=== PATIENT | female | born 1940 | race Caucasian/White ===

== ENCOUNTER 2019-08-12 17:46 | Inpatient (IN) ==
[2019-08-12] MEDS ORDERED: DUONEB (A & A) INH ONE ×2 (18:43→19:56)
[2019-08-12 19:15] LABS: BASO# 0.04 X1000 (0.0-0.2); BASO% 0.6 % (0.0-0.8); HEMATOCRIT 39.5 % (37.0-47.0); IMM GRAN# 0.02 X1000 (0.0-0.04); IMM GRAN% 0.3 % (0.0-0.5); LYMPH# 0.33 X1000 (1.2-3.4); LYMPH% 4.6 % (20.5-51.1); MCH 30.2 PG (27-31); MCHC 30.4 g/dL (33-37); MCV 99.2 FL (81-99); MONO# 0.59 X1000 (0.11-0.59); MONO% 8.1 % (1.7-9.3); MPV 9.6 FL (7.4-10.4); NEUT# 6.26 X1000 (1.4-6.5); NEUT% 86.4 % (42.2-75.2); PLT 278 X1000 (130-400); RBC 3.98 XMIL (4.2-5.4); RDW 15.2 % (11.5-14.5); WBC 7.24 X1000 (4.8-10.8)
--- NOTE | 2019-08-12 19:22 | Diag Imaging Result Doc PS360 ---
EXAM: CHEST-2 VIEWS INDICATION: COUGH SOB TECHNIQUE: 2 views COMPARISON: 05/28/2019 FINDINGS: The lungs are grossly clear. There is no discrete pleural fluid collection or pneumothorax. There is stable cardiomegaly and a stable left-sided pacemaker. Central vasculature is unremarkable. IMPRESSION: Cardiomegaly but no definite acute pathology by plain radiograph. Electronically signed by Kel Valdes 08/12/2019 7:20 PM
[2019-08-12 19:24] LABS: CALCIUM 9.7 mg/dL (8.8-10.2); CREATININE 0.9 mg/dL (0.5-0.9); POTASSIUM 3.8 mmol/L (3.5-5.1)
[2019-08-12] MEDS ORDERED: LASIX IV ONE (19:56)
[2019-08-12] MEDS ORDERED: TESSALON PO ONE (19:57)
[2019-08-12] MEDS ORDERED: SOLU-MEDROL IV ONE (19:57)
[2019-08-12] MEDS ORDERED: MUCINEX PO ONE (19:57)
--- NOTE | 2019-08-12 22:30 | PROVIDER DOCUMENTATION ---
This chart was entered by Joy Ayala Scribe, acting as scribe for Sunny Rendon MD. HPI-Respiratory General - General Chief Complaint: Shortness of Breath Stated Complaint: SOB COUGH WEAK Time Seen by Provider: 08/12/19 18:12 Source: patient, family () Allergies/Adverse Reactions: Patient Allergies Allergy/AdvReac Type Severity Reaction Status Date / Time acetaminophen [From Tylenol] Allergy Severe Unknown Verified 05/28/19 16:05 codeine Allergy Intermediate NAUSEA Verified 05/28/19 16:05 Home Medications: Home Medication List Medication Instructions Recorded Confirmed Last Taken Type Aspirin 81 mg PO BID 06/20/14 08/12/19 05/28/19 History Dabigatran Etexilate Mesylate 150 mg PO BID 06/20/14 08/12/19 05/28/19 History [Pradaxa] Famotidine [Pepcid] 40 mg PO BID 06/20/14 08/12/19 05/28/19 History Metformin [Glucophage] 500 mg PO BID AC 06/20/14 08/12/19 05/28/19 History Colesevelam HCl [Welchol] 1,875 mg PO BID 12/18/17 08/12/19 05/28/19 History Exemestane 25 mg PO QAM 12/18/17 08/12/19 05/28/19 History Irbesartan/Hydrochlorothiazide 1 each PO BID 04/09/18 08/12/19 05/28/19 History [Irbesartan-Hctz 150-12.5 mg Tb] Clonazepam 0.5 mg PO BID 05/11/18 08/12/19 05/28/19 History Ascorbic Acid [Vitamin C] 500 mg PO BID 05/17/18 08/12/19 05/28/19 History Lysine HCl [l-Lysine] 500 mg PO BID 05/17/18 08/12/19 05/28/19 History Meclizine HCl [Antivert] 25 mg PO PRN PRN 05/17/18 08/12/19 Unknown History Melatonin/Pyridoxine [Melatonin 5 2 each PO HS 05/17/18 08/12/19 05/27/19 History mg Tablet] Tramadol [Ultram] 50 mg PO BID PRN 05/17/18 08/12/19 1 Week Ago History ~05/21/19 Vilazodone HCl [Viibryd] 20 mg PO DAILY 05/17/18 08/12/19 05/28/19 History Amlodipine Besylate [Norvasc] 5 mg PO HS #0 05/19/18 08/12/19 05/27/19 Rx Torsemide [Demadex] 1 tab PO QAM 05/28/19 08/12/19 05/28/19 History Azithromycin 250 mg PO DAILY 5 Days #5 tablet 08/12/19 Unknown Rx Benzonatate [Tessalon] 100 mg PO TID 5 Days #15 capsule 08/12/19 Unknown Rx Prednisone 40 mg PO DAILY 5 Days #5 tablet 08/12/19 Unknown Rx - History of Present Illness-Resp Nature of Presenting Problem: 79yof presents to ED cc SOB increased with walking, productive cough, tenderness in abdomen and chest with increased coughing for last 2 weeks. Pt at bedside and reports pt has nebulizer with Albuterol at home and uses it regularly. Pt reports she does have home o2 but only uses it when 'they make her.' Pt has hx of COPD, CHF, AFIB, HTN, SD, chronic pain that leads to limited mobility. Pt is nontoxic upon exam. Quality of Pain: reports: tightness Severity in ED: reports: moderate Onset/Duration: reports: last week Timing: reports: still present, getting worse Cough Quality/Degree: reports: productive cough Current Respiratory Medication Therapy: Initiated see nurses note Modifying Factors: worse with: exertion, coughing Associated Symptoms: reports: chest pain/soreness, cough, fever/chills, sh ortness of breath, short of breath, wheezing. denies: headache, muscle/bodyaches Similar Symptoms Previously?: Yes Recently seen or treated by another doctor?: Yes (seen in ED 05/28/19) Review of Systems - Adult - REVIEW OF SYSTEMS - ADULT Constitutional: reports: see HPI, chills, fever, fatique Eyes: reports: no symptoms reported Ears, Nose, Mouth & Throat: reports: no symptoms reported Cardiovascular: reports: see HPI, chest pain (from coughing). denies: palpitations Respiratory: reports: see HPI, cough, dyspnea on exertion, shortness of breath, wheezing Gastrointestinal: reports: see HPI, abdominal pain (from coughing) Genitourinary: reports: no symptoms reported Musculoskeletal: reports: no symptoms reported Integumentary: reports: no symptoms reported Neurological: reports: see HPI. denies: headache/migraines, syncope Psychiatric: reports: no symptoms reported Endocrine: reports: no symptoms reported Hematologic/Lymphatic: reports: no symptoms reported Allergic/Immunologic: reports: no symptoms reported All Other Systems: Reviewed and Negative Past History - Adult - PAST MEDICAL HISTORY-ADULT Review of Records: reports: Old Records Reviewed, Nursing Assessment Review, Medications Reviewed, Social history reviewed & non-contributory. Major Childhood Illnesses: reports: denies history Cardiovascular: reports: CHF, HTN Respiratory: reports: denies history Gastrointestinal: reports: denies history Obstetrical/Gynecological: reports: denies history Genitourinary: reports: denies history Musculoskeletal: reports: arthritis Neurological: reports: denies history Endocrine/Immune: reports: denies history Other Conditions: reports: denies history - PRIOR SURGERIES/PROCEDURES Surgical/Procedure History: reports: pacemaker, other (bilateral mastectomy) - IMMUNIZATION STATUS Childhood Immunizations: See Nurse Assessment Flu Vaccine: See Nurse Assessment - FAMILY HISTORY Family History: reviewed, not pertinent - SOCIAL HISTORY Smoking: denies Physical Exam-General - PHYSICAL EXAM-ADULT Initial Vital Signs Reviewed: Yes - CONSTITUTIONAL General Appearance: appears well, alert, no apparent distress. negative: anxious, combative - EYES Eyes: PERRL/EOMI, pink conjunctivae. negative: photophobia - HEAD, EARS, NOSE, MOUTH & THROAT HENMT: normocephalic/atraumatic, moist mucous membranes. negative: angioedema - NECK Neck: full range of motion, normal inspection - RESPIRATORY Respiratory: chest non-tender, normal breath sounds, no respiratory distress, no accessory muscle use, rhonchi (diffuse throughout), wheezing (bilateral). n egative: crackles, rales - CARDIOVASCULAR Cardiovascular: normal peripheral pulses, regular rate, rhythm. negative: bradycardia, tachycardia - GASTROINTESTINAL (ABDOMEN) Abdominal Exam: normal bowel sounds, non tender, soft. negative: rigid, rebound - MUSCULOSKELETAL Extremity: swelling (+1 bilaterally legs). negative: deformity - SKIN Integumentary: normal color. negative: diaphoresis, jaundice - PSYCHIATRIC Psych/Mental Status: normal mood/affect, oriented x 3. negative: anxious, disheveled Progress - PLAN OF CARE/RESULTS Progress/Plan/Lab Results: Vital Signs - 8 hr 08/12/19 17:51 01/02/20 18:40 08/12/19 18:45 Temperature 100.4 F H Pulse Rate 80 Respiratory Rate 24 Blood Pressure 178/71 183/97 O2 Sat by Pulse Oximetry 93 L 95 95 08/12/19 19:00 08/12/19 19:15 08/12/19 19:30 Temperature Pulse Rate 80 Respiratory Rate 17 Blood Pressure O2 Sat by Pulse Oximetry 93 L 94 L 96 08/12/19 19:31 08/12/19 19:45 08/12/19 20:00 Temperature Pulse Rate Respiratory Rate Blood Pressure 175/72 O2 Sat by Pulse Oximetry 98 93 L 93 L 08/12/19 20:01 08/12/19 20:15 08/12/19 20:30 Temperature Pulse Rate Respiratory Rate Blood Pressure 179/65 O2 Sat by Pulse Oximetry 93 L 95 95 08/12/19 20:31 Temperature 98.6 F Pulse Rate 81 Respiratory Rate Blood Pressure 162/88 O2 Sat by Pulse Oximetry 95 08/12/19 20:30 Influenza Screen - Final Nasopharyngeal Laboratory Results - last 24 hr 08/12/19 08/12/19 08/12/19 18:19 18:19 18:19 WBC 7.24 RBC 3.98 L Hgb 12.0 Hct 39.5 MCV 99.2 H MCH 30.2 MCHC 30.4 L RDW Std Deviation 15.2 H Plt Count 278 MPV 9.6 Immature Gran % (Auto) 0.3 Neut % (Auto) 86.4 H Lymph % (Auto) 4.6 L Edwards % (Auto) 8.1 Eos % (Auto) 0.0 Baso % (Auto) 0.6 Immature Gran # (Auto) 0.02 Neut # (Auto) 6.26 Lymph # (Auto) 0.33 L Edwards # (Auto) 0.59 Eos # (Auto) 0.00 Baso # (Auto) 0.04 Sodium 136 Potassium 3.8 Chloride 92 L Carbon Dioxide 26 Anion Gap 18 BUN 17 Creatinine 0.9 Estimated GFR/1.73 m2 60 BUN/Creatinine Ratio 19 Glucose 206 H Calculated Osmolality 279 Calcium 9.7 [id number] Pept 1493 H Orders Category Date Time Status Repeat Vital Signs .Temp Care 08/12/19 20:04 Active cxr [CHEST-2 VIEWS] [RAD] Stat Exams 08/12/19 18:15 Completed BASIC METABOLIC PANEL [CHEM] Stat Lab 08/12/19 18:19 Completed BNP [PRO B-NATRIURETIC PEPTIDE] Stat Lab 08/12/19 18:19 Completed CBC WITH ELECTRONIC DIFF [HEME] Stat Lab 08/12/19 18:19 Completed INFLUENZA SCREEN A/B Stat Lab 08/12/19 20:30 Completed Albuterol 2.5MG/Ipratrop 0.5MG [Duoneb (A & A)] Med 08/12/19 18:43 Discontinued 3 ml INH NOW ONE Albuterol 2.5MG/Ipratrop 0.5MG [Duoneb (A & A)] Med 08/12/19 19:56 Discontinued 3 ml INH NOW ONE Benzonatate [Tessalon] Med 08/12/19 19:57 Discontinued 200 mg PO NOW ONE Furosemide [Lasix] Med 08/12/19 19:56 Discontinued 60 mg IV NOW ONE Guaifenesin E.r. [Mucinex] Med 08/12/19 19:57 Discontinued 600 mg PO NOW ONE Methylprednisolone Sod Succ [Solu-Medrol] Med 08/12/19 19:57 Discontinued 60 mg IV NOW ONE Aerosol Treatments Routine Oth 08/12/19 18:43 Completed Aerosol Treatments Routine Oth 08/12/19 19:57 Completed Aerosol Treatments Stat Oth 08/12/19 18:43 Completed Aerosol Treatments Stat Oth 08/12/19 19:57 Completed Result Diagrams: 08/12/19 18:19 08/12/19 18:19 - REASSESSMENT Reassessment #1 Time Reassessed: 20:02 Status: other ( IS INSIST THAT PATIENT BE ADMITTED TO THE HOSPITAL BECUASE THE PATIENT HAS BEEN COUGHING FOR MORE THAN 2 WEEKS AND SHORTNESS OF BREATH AND IS NOT GETTING BETTER. I HAVE INFORMED HIM AND THE PATIENT THAT I WI LL GO AHEAD AND GIVE TREATMENT FIRST AND REEVALUATE BEFORE MAKING FURTHER DECISION.) Reassessment #2 Time Reassessed: 22:14 Status: other - XRAY 1 XRAY: Bilateral XRAY Study: Chest Impression: See EMR Report (IMPRESSION: Cardiomegaly but no definite acute pathology by plain radiograph. Electronically signed by Kel Valdes 08/12/2019 7:20 PM) Departure - Departure Date of Disposition Decision: 08/12/19 Time of Disposition Decision: 22:22 DIAGNOSIS: Bronchitis, COPD exacerbation Disposition: HOME 01 Certified Medical Emergency: Emergent Condition: Stable Additional Instructions: ED Follow Up Instructions: You have been treated by a care provider in the Emergency Department. These instructions are being provided to you so you can have an understanding of how to care for yourself upon discharge. Upon discharge from the Emergency Department, you are responsible for making arrangements for follow-up care by a physician of your choice. Take all prescribed medications as directed. Return to the Emergency Department immediately for any new or worsening symptoms. You may call the Physician Referral phone number at [phone] to obtain a list of Physicians who are taking new patients. Prescriptions: Azithromycin 250 mg PO DAILY 5 Days #5 tablet Prednisone 40 mg PO DAILY 5 Days #5 tablet Benzonatate [Tessalon] 100 mg PO TID 5 Days #15 capsule Referrals and Follow-Ups: Usman Kerr MD [Primary Care Provider] - - Critical Care Note This patient required my direct & personal management of CC.: No Attestation - Physician/ TRELL Attestation Patient care was provided by Advanced Practice Provider:: No The physician spent face to face time with patient:: Yes Advanced Practice Provider documentation review:: Supervising physician onsite and consulted in the evaluation and care of this patient. The physician did have a face to face encounter with the patient. This chart was documented by the indicated scribe, (Joy Ayala Scribe) and accurately reflects the services I performed and decisions made by me, Sunny Rendon MD, as attested by the provider's signature.
--- NOTE | 2019-08-13 03:18 | HISTORY AND PHYSICAL ---
PRIMARY CARE PHYSICIAN: Dr. Usman Kerr. CHIEF COMPLAINT: Shortness of breath and cough x2 weeks. HISTORY OF PRESENTING ILLNESS: An 79-year-old elderly female with a history of chronic respiratory failure on home oxygen, CHF, diabetes mellitus type 2, chronic atrial fibrillation, who had presented to emergency department with 2 weeks history of having persistent shortness of breath and cough. The patient states that despite her being on oxygen she was still having shortness of breath and subsequently had come to the emergency department. In the ED, she was evaluated and due to her presenting symptoms it was thought that we will place her for observation for further evaluation and management. At the time of my examination, patient denied any headache, fever, chills, chest pain, hemoptysis, melena or any weight changes, but complained of shortness of breath and cough. PAST MEDICAL HISTORY: Includes chronic respiratory failure on home oxygen, CHF, diabetes mellitus type 2, chronic atrial fibrillation, breast cancer. PAST SURGICAL HISTORY: Pacemaker and bilateral mastectomy. ALLERGIES: Acetaminophen and codeine. CURRENT MEDICATIONS: Include Norvasc 5 mg p.o. at bedtime, aspirin 81 mg p.o. daily, Klonopin 0.5 mg p.o. b.i.d., Welchol 1875 mg p.o. b.i.d., Pradaxa 150 mg p.o. b.i.d., famotidine 40 mg p.o. b.i.d., irbesartan/hydrochlorothiazide 150 mg/12.5 one p.o. daily, metformin 500 mg p.o. b.i.d., torsemide 20 mg p.o. daily, Ultram 50 mg p.o. b.i.d., Viibryd 20 mg p.o. daily. SOCIAL HISTORY: No history of smoking, alcohol or illicit drug use. FAMILY HISTORY: No history of coronary artery disease. REVIEW OF SYSTEMS: Fourteen point review of system as listed in HPI. Other systems negative. PHYSICAL EXAMINATION: GENERAL: Cooperative, friendly elderly female. She is resting more comfortably now. VITAL SIGNS: Temperature 98.9 degrees, pulse 78, respiration 19, blood pressure 181/86. HEENT: Atraumatic, normocephalic. Extraocular movements intact. PERRLA. NECK: No masses. CHEST: Scattered wheezes. CARDIOVASCULAR: Regular rate and rhythm. ABDOMEN: Soft, positive bowel sounds. EXTREMITIES: Trace edema. NEUROLOGIC: She is awake, alert, oriented x3. GENITOURINARY: No bladder distention. SKIN: Warm. LABORATORIES AND STUDIES: WBC 7.24, hemoglobin 12.0, hematocrit 39.5, platelets 278,000. Sodium 136, potassium 3.8, chloride 92, CO2 is 26, BUN is 17, creatinine 0.9, glucose 206. ProBNP is 1496. Chest x-ray shows cardiomegaly. ASSESSMENT: An 79-year-old elderly female with a history of chronic respiratory failure on home oxygen, congestive heart failure, diabetes mellitus type 2 and chronic atrial fibrillation, who had presented to emergency department with 2 weeks history of having persistent shortness of breath and cough. She was evaluated in the emergency department. Due to her presenting symptoms, it was thought that we will place her for observation for further evaluation and management. 1. Acute on chronic respiratory failure. 2. Mild congestive heart failure exacerbation. 3. Diabetes mellitus type 2. 4. Chronic atrial fibrillation. PLAN: 1. We will admit patient to medical floor with telemetry. 2. Continue patient on supplemental oxygen. 3. We will continue with DuoNebs p.r.n. 4. Continue with gentle diuresis. 5. Monitor blood glucose and put patient on sliding scale insulin regimen. 6. Continue to monitor patient on telemetry. 7. Put patient on DVT prophylaxis with SCDs. 8. We will continue to follow, reassess and make further recommendation based on patient's clinical course. cc: Cipriano Kerr MD
[2019-08-13] MEDS ORDERED: DUONEB (A & A) INH PRN (04:45)
[2019-08-13] MEDS ORDERED: ANTIVERT PO PRN (04:45)
[2019-08-13] MEDS ORDERED: ULTRAM PO PRN (04:45)
[2019-08-13] MEDS ORDERED: ZOFRAN IV PRN (04:45)
[2019-08-13] MEDS: LASIX IV SCH ×2 (05:41→16:38)
[2019-08-13] MEDS: TESSALON PO PRN ×2 (05:41→12:50)
[2019-08-13] MEDS: HUMULIN R SUBQ SCH ×4 (06:34→21:45)
[2019-08-13] MEDS: PRADAXA PO SCH ×2 (09:20→21:43)
[2019-08-13] MEDS: VITAMIN C PO SCH ×2 (09:20→21:44)
[2019-08-13] MEDS: KLONOPIN PO SCH ×2 (09:20→21:45)
[2019-08-13] MEDS: ASPIRIN PO SCH ×2 (09:20→21:42)
[2019-08-13] MEDS: AVAPRO PO SCH ×2 (09:21→21:41)
[2019-08-13] MEDS: HYDROCHLOROTHIAZIDE PO SCH ×2 (09:21→21:44)
[2019-08-13] MEDS: PEPCID PO SCH ×2 (09:21→21:43)
[2019-08-13] MEDS: WELCHOL PO SCH ×2 (09:22→21:56)
[2019-08-13] MEDS: VIIBRYD PO SCH (12:46)
[2019-08-13 13:13] LABS: URINE SOURCE CLEAN CATCH
[2019-08-13 13:24] LABS: BILIRUBIN URINE NEGATIVE (NEGATIVE); BLOOD URINE NEGATIVE (NEGATIVE); COLOR YELLOW; GLUCOSE URINE TRACE mg/dL (NEGATIVE); KETONE URINE NEGATIVE (NEGATIVE); LEUKOCYTES URINE NEGATIVE (NEGATIVE); NITRITE URINE NEGATIVE (NEGATIVE); PROTEIN URINE 30 mg/dL (NEGATIVE); SP GRAVITY URINE 1.012; TURBIDITY URINE CLEAR (CLEAR); UROBILINOGEN URINE NORMAL (NORMAL)
[2019-08-13 13:44] LABS: UR EPITHELIAL CELLS <10 /HPF (<10); URINE BACTERIA NEGATIVE /HPF; URINE RBC <10 /HPF (<10); URINE WBC <10 /HPF (<10)
[2019-08-13 13:45] LABS: URINE CRYSTALS NONE SEEN
[2019-08-13] MEDS ORDERED: DUONEB (A & A) INH SCH (16:00)
[2019-08-13] MEDS: SOLU-MEDROL IV SCH (16:43)
--- NOTE | 2019-08-13 17:50 | PROGRESS NOTE ---
DATE: 08/13/2018 INTERVAL HISTORY: Ms. Gipson was admitted for shortness of breath. No acute events overnight. SUBJECTIVE: Ms. Gipson is feeling better. Her is at bedside. She, however, still feels short of breath and is complaining of a cough. She denies any fever. She states she is able to make sputum frequently which looks yellow to brownish. She states she has been taking diuretics at home. She states she has a known history of COPD and is supposed to be using oxygen. VITAL SIGNS: Currently, temperature of 98.8 degrees, pulse 80, respiratory rate 20, blood pressure 160/50, saturating 100% on 2 L nasal cannula. PHYSICAL EXAMINATION: General: She is not in acute distress. HEENT: Oral cavity is moist. No congestion in the posterior pharyngeal wall. Lungs: Air entry decreased bilaterally with inspiratory crackles and end-expiratory wheezes audible, most prominent in infrascapular region. Cardiovascular: S1, S2 normal. Regular. No murmur or gallop. Abdomen: Soft, nontender. No jugular venous distention on palpation of right upper quadrant. Extremities: She has mild bilateral lower extremity edema. Neurologic: She is alert. She is answering most questions appropriately. She does have some memory impairment though, as she stated that she had seen me about 6 years ago. LABS: Initial labs did not have any leukocytosis. She has hyperglycemia. MICROBIOLOGY: Influenza screen was negative. IMAGING: Chest x-ray has pulmonary vascular congestion and interstitial pulmonary edema. ASSESSMENT AND PLAN: 1. Acute on chronic hypoxic respiratory failure due to acute on chronic cor pulmonale and acute chronic obstructive pulmonary disease exacerbation. Continue intravenous Lasix. Start patient on scheduled inhaled bronchodilator, as well as intravenous steroids. I will follow up her respiratory status closely. I will follow up with daily BMP. 2. History of congestive heart failure with preserved ejection fraction exacerbation. She does have significant pulmonary hypertension with pulmonary artery pressure of 65 to 70 mmHg. I will continue her intravenous diuretics, irbesartan. 3. History of chronic atrial fibrillation, status post pacemaker. She is not listed to be taking any rate control medication. She is on dabigatran, which I will continue. 4. History of essential hypertension. Continue home amlodipine, hydrochlorothiazide, irbesartan. 5. She also has a history of transcutaneous aortic valve replacement, chronic obstructive pulmonary disease, type 2 diabetes mellitus for which I will continue her sliding scale insulin and will add a insulin glargine. 6. Disposition. Continue to monitor the patient in the telemetry unit. Plan of care discussed with the patient and her extensively. All of their questions have been satisfactorily answered. cc: Ramon Oconnell MD
[2019-08-13] MEDS: DUONEB (A & A) INH SCH (20:11)
[2019-08-13] MEDS: NORVASC PO SCH (21:41)
[2019-08-13] MEDS: LANTUS INSULIN SUBQ SCH (21:56)
[2019-08-14] MEDS: DUONEB (A & A) INH SCH ×6 (00:12→15:58)
[2019-08-14] MEDS: LASIX IV SCH ×2 (06:29→18:27)
[2019-08-14] MEDS: HUMULIN R SUBQ SCH ×4 (06:35→23:08)
[2019-08-14 07:43] LABS: BASO# 0.01 X1000 (0.0-0.2); BASO% 0.1 % (0.0-0.8); HEMATOCRIT 41.4 % (37.0-47.0); HEMOGLOBIN 12.3 g/dL (12.0-16.0); LYMPH# 0.38 X1000 (1.2-3.4); LYMPH% 3.3 % (20.5-51.1); MCH 29.6 PG (27-31); MCHC 29.7 g/dL (33-37); MCV 99.5 FL (81-99); MONO# 0.53 X1000 (0.11-0.59); MONO% 4.6 % (1.7-9.3); MPV 9.6 FL (7.4-10.4); NEUT# 10.67 X1000 (1.4-6.5); PLT 283 X1000 (130-400); RBC 4.16 XMIL (4.2-5.4); RDW 14.9 % (11.5-14.5); WBC 11.59 X1000 (4.8-10.8)
[2019-08-14] MEDS: PATIENT'S OWN MED PO SCH ×3 (07:45→23:07)
[2019-08-14 08:05] LABS: CALCIUM 9.7 mg/dL (8.8-10.2); CREATININE 1.1 mg/dL (0.5-0.9); POTASSIUM 3.6 mmol/L (3.5-5.1)
[2019-08-14 08:20] LABS: BANDS 2 % (0-1); LYMPHS 10 % (21-51); MONO 6 % (1-9); SEGS 82 % (42-75)
[2019-08-14] MEDS: PEPCID PO SCH ×2 (10:08→23:11)
[2019-08-14] MEDS: WELCHOL PO SCH ×2 (10:08→23:11)
[2019-08-14] MEDS: ASPIRIN PO SCH ×2 (10:09→23:12)
[2019-08-14] MEDS: AVAPRO PO SCH ×2 (10:09→23:11)
[2019-08-14] MEDS: VIIBRYD PO SCH (10:09)
[2019-08-14] MEDS: KLONOPIN PO SCH ×2 (10:10→23:19)
[2019-08-14] MEDS: HYDROCHLOROTHIAZIDE PO SCH ×2 (10:10→23:09)
[2019-08-14] MEDS: VITAMIN C PO SCH ×2 (10:10→23:12)
[2019-08-14] MEDS: PRADAXA PO SCH ×2 (10:10→23:12)
[2019-08-14] MEDS: SOLU-MEDROL IV SCH (18:27)
--- NOTE | 2019-08-14 20:40 | PROGRESS NOTE ---
DATE: 08/14/2019 INTERVAL HISTORY: No acute events were reported to me. I could not find the patient in the room. I will revisit her again. OBJECTIVE: On reviewing the vital signs, I could see her temperature was 98.2 degrees, pulse 81, respiratory rate 20, blood pressure 130/50. She is saturating 100% on 2 L nasal cannula. I have yet to perform physical examination. LABORATORY DATA: Reviewing the labs suggests she does have leukocytosis, normocytic anemia and normal platelet count. This likely because of steroid use. She does have increasing BUN and creatinine. She also has hyperglycemia, likely because of steroid use. Microbiology: Influenza screen on presentation was negative. ASSESSMENT AND PLAN: 1. [id number] hypoxic respiratory failure due to [id number] cor pulmonale and acute chronic obstructive pulmonary disease exacerbation. I am holding intravenous Lasix for now until I reassess her. Continue scheduled bronchodilators and intravenous steroids. She appears to be hemodynamically stable. 2. History of congestive heart failure with preserved ejection fraction exacerbation. Pulmonary hypertension of 65 to 70 mmHg. Continue her home irbesartan. 3. History of chronic atrial fibrillation, status post pacemaker. Continue dabigatran. 4. History of essential hypertension. Continue amlodipine, hydrochlorothiazide and irbesartan. 5. She has a history of transcutaneous aortic valve replacement, chronic obstructive pulmonary disease, type 2 diabetes mellitus, and I am keeping her on insulin glargine and sliding scale insulin. 6. Disposition: Monitor patient inside hospital. cc: Ramno cOonnell MD
[2019-08-14] MEDS: NORVASC PO SCH (23:12)
[2019-08-14] MEDS: LANTUS INSULIN SUBQ SCH (23:17)
[2019-08-15] MEDS: DUONEB (A & A) INH SCH ×8 (00:01→23:25)
[2019-08-15] MEDS: HUMULIN R SUBQ SCH ×4 (06:42→22:24)
[2019-08-15 08:37] LABS: CREATININE 1.1 mg/dL (0.5-0.9); MAGNESIUM 2.1 mg/dL (1.5-2.7); POTASSIUM 4.1 mmol/L (3.5-5.1)
--- NOTE | 2019-08-15 09:32 | PROGRESS NOTE ---
DATE: 08/15/2019 INTERVAL HISTORY: No acute events overnight. SUBJECTIVE: Ms. Gipson is feeling better. She is asleep. She states she is no longer feeling short of breath. VITALS: Currently temperature of 98.2 degrees, pulse 80, respiratory rate 20, blood pressure 150/50, saturating 97% room air. PHYSICAL EXAMINATION: Not in acute distress. Oral cavity is moist. Lungs: Air entry bilaterally equal. No wheeze or rhonchi. Mild crackles in infrascapular region. S1, S2 normal. Regular. No murmur, rub, or gallop. Abdomen: Soft, nontender. She does not have lower extremity edema. She is alert and oriented x3. Her input and output is not charted properly though. LABS: Suggestive of hyponatremia, hypochloremia. Elevated BUN and creatinine. This is likely because of intravenous Lasix which I have stopped. Hyperglycemia because of steroids and I have changed it to oral. Her influenza screen was negative. No new chest x-ray. ASSESSMENT AND PLAN: 1. Acute on chronic hypoxic respiratory failure due to acute on chronic cor pulmonale and acute chronic obstructive pulmonary disease exacerbation, now improved. Stop intravenous Lasix. Continue inhaled bronchodilators and change to oral steroids. 2. Acute kidney injury due to intravenous Lasix use. It should get better. She should have outpatient BMP. 3. History of chronic atrial fibrillation, status post pacemaker. Continue home dabigatran. 4. Others. Continue amlodipine, hydrochlorothiazide, and losartan for essential hypertension; she is status post transcatheter aortic valve replacement; she has history of chronic obstructive pulmonary disease and type 2 diabetes mellitus for which I will continue sliding scale insulin and glargine. 5. Disposition. I am anticipating discharge in the next 24 hours. Plan of care discussed with the patient. Her questions have been answered. cc: Ramon Oconnell MD
[2019-08-15] MEDS: VITAMIN C PO SCH ×2 (09:57→22:26)
[2019-08-15] MEDS: VIIBRYD PO SCH (09:57)
[2019-08-15] MEDS: PREDNISONE PO SCH (09:57)
[2019-08-15] MEDS: WELCHOL PO SCH ×2 (09:57→22:26)
[2019-08-15] MEDS: PEPCID PO SCH ×2 (09:57→22:25)
[2019-08-15] MEDS: KLONOPIN PO SCH ×2 (09:57→22:31)
[2019-08-15] MEDS: AVAPRO PO SCH ×2 (09:58→22:25)
[2019-08-15] MEDS: PRADAXA PO SCH ×2 (09:58→22:26)
[2019-08-15] MEDS: HYDROCHLOROTHIAZIDE PO SCH ×2 (09:58→22:26)
[2019-08-15] MEDS: ASPIRIN PO SCH ×2 (09:58→22:25)
[2019-08-15] MEDS: PATIENT'S OWN MED PO SCH ×2 (09:59→22:31)
[2019-08-15] MEDS: LANTUS INSULIN SUBQ SCH (22:24)
[2019-08-15] MEDS: NORVASC PO SCH (22:26)
[2019-08-16] MEDS: DUONEB (A & A) INH SCH ×6 (03:48→23:35)
[2019-08-16] MEDS: HUMULIN R SUBQ SCH ×4 (06:15→22:34)
[2019-08-16] MEDS ORDERED: FLU VACCINE IM ONE (07:37)
[2019-08-16] MEDS: KLONOPIN PO SCH ×2 (08:07→22:33)
[2019-08-16] MEDS: AVAPRO PO SCH ×2 (08:07→22:32)
[2019-08-16] MEDS: PEPCID PO SCH ×2 (08:07→22:33)
[2019-08-16] MEDS: VITAMIN C PO SCH ×2 (08:07→22:33)
[2019-08-16] MEDS: HYDROCHLOROTHIAZIDE PO SCH ×2 (08:07→22:33)
[2019-08-16] MEDS: PREDNISONE PO SCH (08:07)
[2019-08-16] MEDS: PRADAXA PO SCH ×2 (08:07→22:32)
[2019-08-16] MEDS: ASPIRIN PO SCH ×2 (08:07→22:33)
[2019-08-16] MEDS: WELCHOL PO SCH ×2 (08:07→22:33)
[2019-08-16] MEDS: DEMADEX PO SCH (08:07)
[2019-08-16] MEDS: VIIBRYD PO SCH (08:08)
[2019-08-16] MEDS: PATIENT'S OWN MED PO SCH ×2 (08:19→23:46)
[2019-08-16 08:25] LABS: CALCIUM 9.4 mg/dL (8.8-10.2); CREATININE 1.1 mg/dL (0.5-0.9); POTASSIUM 2.7 mmol/L (3.5-5.1)
[2019-08-16] MEDS ORDERED: KLOR-CON PO ONE ×2 (10:00→14:45)
--- NOTE | 2019-08-16 15:11 | PROGRESS NOTE ---
DATE: 08/16/2019 INTERVAL HISTORY: No acute events overnight. Ms. Gipson is sleepy early in the morning time when I saw her. She denies any chest pain or shortness of breath. She states she is feeling significantly better. She was walking in the hallway. VITALS: Temperature 98.1 degrees, pulse 79, respiratory rate 18, blood pressure 140/50, she is saturating 100% on 2 L nasal cannula. PHYSICAL EXAMINATION: She is not in acute distress. Oral cavity is moist. Air entry bilaterally equal. No wheeze, rhonchi, crackles. Cardiovascular: S1, S2 normal. No murmur, rub, or gallop. Abdomen: Soft, nontender. No lower extremity edema. She was drowsy but arousable. She answers most questions appropriately. LABS: No CBC today. BMP suggestive of hypokalemia which was repleted with potassium and I also ordered another dose of potassium. ASSESSMENT AND PLAN: 1. Acute on chronic hypoxic respiratory failure due to acute on chronic cor pulmonale and mild acute chronic obstructive pulmonary disease exacerbation, now improved. Continue inhaled bronchodilators, oral steroids, and oral Lasix. 2. Acute kidney injury due to intravenous Lasix use, now improved. I will transition her to her home oral diuretic, torsemide. 3. History of chronic atrial fibrillation, status post pacemaker. Continue home dabigatran. Her heart rate is well-controlled. 4. Continue amlodipine, hydrochlorothiazide, losartan for essential hypertension; she is status post transcatheter aortic valve replacement; history of chronic obstructive pulmonary disease and chronic hypoxic respiratory failure, on home oxygen, currently stable. 5. Type 2 diabetes mellitus and steroid-induced hyperglycemia. Continue her current dose of glargine and sliding scale insulin. 6. Disposition. My initial plan was to discharge patient home today and the discharge summary has been dictated. However, the patient's came by and they said that he would not be able to take the patient home and he wanted the patient to go to rehab until an assisted living facility is arranged. Because of his complex social issues, social media job titles have been involved and I canceled the discharge order. cc: Ramon Oconnell MD
[2019-08-16] MEDS: NORVASC PO SCH (22:33)
[2019-08-16] MEDS: LANTUS INSULIN SUBQ SCH (22:34)
[2019-08-17] MEDS: DUONEB (A & A) INH SCH ×6 (03:20→23:58)
[2019-08-17] MEDS: HUMULIN R SUBQ SCH ×4 (06:47→23:53)
[2019-08-17 08:35] LABS: CALCIUM 9.6 mg/dL (8.8-10.2); CREATININE 1.1 mg/dL (0.5-0.9); POTASSIUM 3.7 mmol/L (3.5-5.1)
[2019-08-17 09:12] LABS: MAGNESIUM 2.5 mg/dL (1.5-2.7)
[2019-08-17] MEDS: VIIBRYD PO SCH (09:13)
[2019-08-17] MEDS: PREDNISONE PO SCH (09:14)
[2019-08-17] MEDS: AVAPRO PO SCH ×2 (09:14→21:35)
[2019-08-17] MEDS: VITAMIN C PO SCH ×2 (09:14→21:35)
[2019-08-17] MEDS: PEPCID PO SCH ×2 (09:14→21:33)
[2019-08-17] MEDS: ASPIRIN PO SCH ×2 (09:14→21:38)
[2019-08-17] MEDS: PRADAXA PO SCH ×2 (09:14→21:34)
[2019-08-17] MEDS: WELCHOL PO SCH ×2 (09:15→21:33)
[2019-08-17] MEDS: HYDROCHLOROTHIAZIDE PO SCH ×2 (09:15→21:35)
[2019-08-17] MEDS: DEMADEX PO SCH (09:15)
[2019-08-17] MEDS: PATIENT'S OWN MED PO SCH ×2 (09:30→21:38)
[2019-08-17] MEDS: KLONOPIN PO SCH ×2 (09:33→21:35)
--- NOTE | 2019-08-17 10:17 | DISCHARGE SUMMARY ---
ADMISSION DATE: 08/13/2019 DISCHARGE DATE: 08/17/2019 DISCHARGE DISPOSITION: Home. DISCHARGE CONDITION: Hemodynamically stable she is no longer wheezing. Her shortness of breath has resolved. She is breathing 94% on room air. DISCHARGE DIAGNOSES: 1. Acute on chronic hypoxic respiratory failure. 2. Acute on chronic cor pulmonale exacerbation. 3. Acute chronic obstructive pulmonary disease exacerbation. 4. Acute congestive heart failure with preserved ejection fraction exacerbation. 5. Hypokalemia. 6. Hyperglycemia due to steroids. OTHER DIAGNOSES: 1. Chronic atrial fibrillation on anticoagulation. 2. History of essential hypertension. 3. History of transcutaneous aortic valve replacement. 4. History of chronic obstructive pulmonary disease. 5. Type 2 diabetes mellitus, non-insulin dependent. 6. History of chronic respiratory failure on home oxygen. 7. History of breast cancer. 8. History of status post pacemaker and bilateral mastectomy. DISCHARGE MEDICATIONS: 1. Meclizine 25 mg as needed for dizziness. 2. Aspirin 81 mg daily. 3. Clonazepam 0.5 mg b.i.d. 4. Torsemide 20 mg in the morning time. 5. Exemestane 25 mg in the morning. 6. Metformin 500 mg b.i.d. with meals. 7. Irbesartan hydrochlorothiazide 150/12.5 mg b.i.d. 8. Famotidine 40 mg b.i.d. 9. Melatonin pyridoxine 5 mg at nighttime. 10. Dabigatran 150 mg b.i.d. 11. Tramadol 50 mg b.i.d. as needed. 12. Viibryd 20 mg daily. 13. Vitamins 1 tablet daily. 14. Welchol 1875 mg b.i.d. 15. Amlodipine 5 mg at nighttime. 16. Prednisone 40 mg daily for 2 days. VITALS: At the time of discharge: Temperature 98.1 degrees, pulse 80 respiratory 18, blood pressure 130/55, saturating 94% room air. PHYSICAL EXAMINATION: Not in acute distress. HEENT: Oral cavity is moist. Lungs: Air entry bilaterally equal. No wheeze or rhonchi. Mild crackles, infrascapular region. Cardiovascular: S1, S2 normal. Regular. No murmur or gallop. Abdomen: Soft, nontender. No jugular venous distention. Extremity: No lower extremity edema. Neurologic: She is alert and oriented x3. INPUT AND OUTPUT SINCE HOSPITAL ADMISSION: It was not charted appropriately. CODE STATUS: Do not resuscitate level 1. LABS: At the time of discharge WBC 11,000 with eosinophil count of 0%, likely because of steroids. Hemoglobin 12.3. Platelet 283,000. Potassium of 2.7, which is currently being repleted. BUN 35, creatinine 1.1, GFR of 48, blood glucose 115. Influenza screen on admission did not have any influenza. IMAGING: Chest x-ray on presentation had cardiomegaly without any acute pathology. On telemetry she had a paced rhythm. HOSPITAL COURSE SUMMARY: Ms. Gipson is 79-year-old lady with past medical history of chronic respiratory failure on home oxygen, CHF, diabetes mellitus type 2, chronic atrial fibrillation, COPD on home oxygen, cor pulmonale, who came in on 08/12/2018 with chief complaints of shortness of breath and cough about 2 weeks duration. She did not have any fevers or chills. On presentation, she was found to have hypoxia with oxygen saturation of 91%. She also has lower extremity edema. Chest x-ray did not have infiltrate, so she was admitted for acute cor pulmonale exacerbation and was started on IV diuretics. She was also found to have wheezing on examination so her bronchodilators were made scheduled and she was started on steroids. With intravenous diuresis, intravenous steroids and bronchodilators her condition improved. At the time of discharge she has been tolerating oral diuretics without any discomfort and her steroids have been changed to oral, which she has been tolerating without recurrence of wheeze. It was decided to discharge her with outpatient followup. She was advised to follow up with cell assembly pinner and regular physician within 1 week. TIME SPENT: More than 30 minutes of time was spent in discharging this patient. Plan of care was discussed with her extensively. cc: Ramon Oconnell MD
[2019-08-17] MEDS: MAXIPIME 1 GM in NS 50 ML IV SCH ×2 (13:30→23:57)
--- NOTE | 2019-08-17 15:38 | Diag Imaging Result Doc PS360 ---
EXAM: CT THORAX W/O CONTRAST 08/17/2019 HISTORY: pneumonia TECHNIQUE: This exam was performed using automated exposure control, adjustment of mA or kV according to patient size, and/or use of iterative reconstruction technique. COMMENT: There is a partially cavitary nodule present in the right upper lobe on image 31 measuring 13 mm in diameter. Compared to the previous study of 05/13/2018 this lesion has decreased from almost 17 mm. The pleural fluid collections which were present previously have diminished considerably. There is some motion artifact. There is a pacemaker on the left. There are arterial calcifications particularly in the aortic arch left subclavian artery ascending aorta and left coronary artery. There is a TAVR. There is calcification the mitral valve annulus. There is no evidence of acute bony disease. IMPRESSION: Diminished nodule in the right upper lobe. Otherwise no evidence of acute pulmonary parenchymal disease. Improved bilateral pleural effusions. Electronically signed by José Blackwell 08/17/2019 3:36 PM
[2019-08-17] MEDS: NORVASC PO SCH (21:35)
--- NOTE | 2019-08-17 22:02 | PROGRESS NOTE ---
DATE: 08/17/2019 SUBJECTIVE: The patient is resting comfortably. She complains of yellow colored sputum that she has been coughing up. OBJECTIVE: Vital Signs: Temperature 98.6 degrees, blood pressure 138/50, heart rate 81, respirations 16, O2 saturation is 100% on 2 L nasal cannula. Intake 300, output 1 L. General: This is a chronically ill-appearing, elderly female, sitting up in bed in no acute distress. Heart: S1, S2 normal. Regular rate and rhythm. Lungs: Mild expiratory wheezes bilaterally. Abdomen: Positive bowel sounds. Soft, nontender, nondistended. Extremities: No edema. Neurologic: Alert and oriented x3. LABORATORY DATA: Sodium 142, potassium 3.7, chloride 98, CO2 of 31, BUN 37, creatinine 1.1, glucose 95. IMAGING PROCEDURE: CT of the chest shows no evidence of acute pulmonary parenchymal disease. Improved bilateral pleural effusions. ASSESSMENT AND PLAN: 1. Acute chronic obstructive pulmonary disease exacerbation with bronchitis. We will continue with antibiotic therapy, bronchodilator therapy, and steroid therapy. We will try and wean the patient off of supplemental oxygen. 2. Diabetes mellitus type 2. Continue on Lantus and sliding scale insulin. 3. Chronic atrial fibrillation, status post pacemaker. Continue on dabigatran. 4. Hypertension. Continue on the current antihypertensive regimen. 5. Cor pulmonale. Aware. 6. Disposition. Benefits Assistant is working on inpatient rehab placement for the patient. We will continue with physical therapy pending rehab placement. cc: Bessie Marie MD MTDD
[2019-08-17] MEDS: LANTUS INSULIN SUBQ SCH (23:52)
[2019-08-18] MEDS: DUONEB (A & A) INH SCH ×6 (04:18→23:35)
[2019-08-18] MEDS: HUMULIN R SUBQ SCH ×4 (07:46→22:14)
[2019-08-18 07:48] LABS: CALCIUM 9.8 mg/dL (8.8-10.2); CREATININE 1.2 mg/dL (0.5-0.9); POTASSIUM 3.4 mmol/L (3.5-5.1)
[2019-08-18] MEDS ORDERED: KLOR-CON PO ONE (07:56)
[2019-08-18] MEDS: PATIENT'S OWN MED PO SCH ×2 (09:59→22:19)
[2019-08-18] MEDS: AVAPRO PO SCH ×2 (10:00→22:13)
[2019-08-18] MEDS: VITAMIN C PO SCH ×2 (10:00→22:14)
[2019-08-18] MEDS: KLONOPIN PO SCH ×2 (10:00→22:14)
[2019-08-18] MEDS: PRADAXA PO SCH ×2 (10:00→22:14)
[2019-08-18] MEDS: DEMADEX PO SCH (10:00)
[2019-08-18] MEDS: HYDROCHLOROTHIAZIDE PO SCH ×2 (10:00→22:14)
[2019-08-18] MEDS: WELCHOL PO SCH ×2 (10:01→22:13)
[2019-08-18] MEDS: PREDNISONE PO SCH (10:01)
[2019-08-18] MEDS: PEPCID PO SCH ×2 (10:01→22:13)
[2019-08-18] MEDS: VIIBRYD PO SCH (10:01)
[2019-08-18] MEDS: DOXYCYCLINE 100 MG in NS 250 ML IV SCH ×3 (10:05→22:19)
[2019-08-18] MEDS: ASPIRIN PO SCH ×2 (10:07→22:13)
[2019-08-18] MEDS: MAXIPIME 1 GM in NS 50 ML IV SCH (13:48)
[2019-08-18] MEDS ORDERED: AUGMENTIN PO ONE (15:04)
[2019-08-18] MEDS: MUCOMYST 20% INH SCH ×2 (15:25→20:16)
--- NOTE | 2019-08-18 21:14 | PROGRESS NOTE ---
DATE: 08/18/2019 SUBJECTIVE: The patient is resting comfortably in bed. She complains of a productive cough with yellow sputum. OBJECTIVE: Vital signs: Temperature 98.6 degrees, blood pressure 120/57, heart rate 77, respirations 16, O2 saturation 100% on 2 L nasal cannula.General: This is a chronically ill- appearing elderly female, lying in bed in no acute distress. Heart: S1, S2 normal. Regular rate and rhythm. Lungs: Mild expiratory wheezes bilaterally. Abdomen: Positive bowel sounds. Soft, nontender, nondistended. Extremities: No edema, no cyanosis. Neurologic: The patient is alert and oriented x3. LABORATORY DATA: Sodium 137, potassium 3.4, chloride 92, CO2 is 33, BUN 36, creatinine 1.2, glucose 139. ASSESSMENT AND PLAN: 1. Acute chronic obstructive pulmonary disease exacerbation with bronchitis. Continue on intravenous antibiotics, bronchodilator therapy and steroid taper. 2. Diabetes mellitus. Continue on Lantus and sliding scale insulin. 3. Chronic atrial fibrillation, status post pacemaker. The patient is rate- controlled. 4. Cor pulmonale. Aware. 5. Hypertension. Stable. 6. Disposition. Gift Wrapper is working on inpatient rehab placement for the patient. Continue with physical therapy. cc: Bessie Marie MD MTDD
[2019-08-18] MEDS: NORVASC PO SCH (22:14)
[2019-08-18] MEDS: LANTUS INSULIN SUBQ SCH (22:15)
[2019-08-19] MEDS: MAXIPIME 1 GM in NS 50 ML IV SCH ×2 (02:40→14:29)
[2019-08-19] MEDS: DUONEB (A & A) INH SCH ×4 (05:38→16:19)
[2019-08-19 06:34] LABS: HEMATOCRIT 39.6 % (37.0-47.0); HEMOGLOBIN 11.7 g/dL (12.0-16.0); MCH 28.9 PG (27-31); MCHC 29.5 g/dL (33-37); MCV 97.8 FL (81-99); MPV 9.2 FL (7.4-10.4); RBC 4.05 XMIL (4.2-5.4); RDW 15.5 % (11.5-14.5); WBC 9.37 X1000 (4.8-10.8)
[2019-08-19] MEDS: HUMULIN R SUBQ SCH ×3 (06:56→15:54)
[2019-08-19 07:15] LABS: CALCIUM 9.2 mg/dL (8.8-10.2); CREATININE 1.1 mg/dL (0.5-0.9); POTASSIUM 3.4 mmol/L (3.5-5.1)
[2019-08-19] MEDS ORDERED: KLOR-CON PO ONE (09:15)
[2019-08-19] MEDS: MUCOMYST 20% INH SCH (09:19)
[2019-08-19] MEDS: HYDROCHLOROTHIAZIDE PO SCH (09:47)
[2019-08-19] MEDS: VITAMIN C PO SCH (09:47)
[2019-08-19] MEDS: PEPCID PO SCH (09:48)
[2019-08-19] MEDS: AVAPRO PO SCH (09:48)
[2019-08-19] MEDS: ASPIRIN PO SCH (09:48)
[2019-08-19] MEDS: VIIBRYD PO SCH (09:48)
[2019-08-19] MEDS: DEMADEX PO SCH (09:49)
[2019-08-19] MEDS: PREDNISONE PO SCH (09:49)
[2019-08-19] MEDS: PRADAXA PO SCH (09:49)
[2019-08-19] MEDS: DOXYCYCLINE 100 MG in NS 250 ML IV SCH (09:50)
[2019-08-19] MEDS: WELCHOL PO SCH (09:50)
[2019-08-19] MEDS: KLONOPIN PO SCH (09:56)
[2019-08-19] MEDS: PATIENT'S OWN MED PO SCH (11:29)
--- NOTE | 2019-08-19 13:03 | DISCHARGE SUMMARY ---
ADMISSION DATE: 08/16/2019 DISCHARGE DATE: ADDENDUM: Ms. Gipson was seen and examined this morning. She states that she feels a lot better today. Her vital signs are stable at this time. The patient will be discharged to [facility] today. DISCHARGE MEDICATIONS: 1. Lactobacillus 1 tablet oral daily. 2. Medrol Dosepak use as directed. 3. DuoNebs 3 mL inhalation every 4 hours. 4. Augmentin 875/125 one tablet oral twice a day x7 days. 5. Klonopin 0.5 mg oral twice a day. 6. Aspirin 81 mg oral twice a day. 7. Metformin 500 mg oral twice a day. 8. Pepcid 40 mg oral twice a day. 9. Pradaxa 150 mg oral twice a day. 10. Welchol 1875 mg oral twice a day. 11. Exemestane 25 mg oral every morning. 12. Irbesartan/hydrochlorothiazide 1 tablet oral twice a day. 13. Vitamin C 500 mg oral twice a day. 14. Lysine 500 mg oral twice a day. 15. Meclizine 25 mg oral every 8 hours p.r.n. for dizziness. 16. Tramadol 50 mg oral twice a day p.r.n. for pain. 17. Norvasc 5 mg p.o. at bedtime. 18. Demadex 20 mg oral every morning. 19. Viibryd 20 mg oral daily. 20. Melatonin 2 tablets oral at bedtime. DISCHARGE DIET: An 1800, ADA, low-sodium diet. ACTIVITY: As tolerated. FOLLOWUP INSTRUCTIONS: The patient will need to follow up with her primary care physician within 1 week of being discharged from rehab. cc: Bessie Marie MD
[2019-08-19 15:48] VITALS: BP 120/60
== END 2019-08-19 16:15 | DRG 291 ==
LOC: ED 17:46 → OBSVTOIN 08-13 04:15 → EDIPHOLD 08-13 04:15 → SUATTDRO 08-13 04:15 → INTOOBSV 08-13 04:15 → 4N 08-13 07:28 → UNDODISIN 08-19 15:43
PROVIDERS: ATTEND Internal Medicine